=== PATIENT | female | born 1990 | race American Indian/Alaskan Native ===

== ENCOUNTER 2020-11-25 23:22 | Observation (INO) | payer OTHER, SELFPAY ==
[2020-11-26 00:17] LABS: Basophils # (Auto) 0.1 K/mm3 (0.0-0.1); Eosinophils # (Auto) 0.2 K/mm3 (0.0-0.4); Eosinophils % (Auto) 2.4 % (0.0-4.3); Hematocrit 36.7 % (30.3-42.9); Hemoglobin 11.7 gm/dl (10.1-14.3); Lymphocytes # (Auto) 1.8 K/mm3 (1.2-5.4); Lymphocytes % (Auto) 26.8 % (13.4-35.0); Mean Corpuscular HGB Conc 32 % (30-34); Mean Corpuscular Volume 71 fl (79-97); Monocytes # (Auto) 0.5 K/mm3 (0.0-0.8); Monocytes % (Auto) 7.2 % (0.0-7.3); Platelet Count 312 K/mm3 (140-440); Red Blood Count 5.15 M/mm3 (3.65-5.03); Red Cell Distribution Width 14.6 % (13.2-15.2)
[2020-11-26 00:27] LABS: INR 0.97 (0.87-1.13)
[2020-11-26 00:28] LABS: Partial Thromboplastin Time 31.3 Sec. (24.2-36.6); Thrombin Time 15.9 Sec. (15.1-19.6)
[2020-11-26 00:41] LABS: Creatine Kinase MB 4.7 ng/mL (0.0-4.0)
[2020-11-26 00:42] LABS: Alanine Aminotransferase 23 units/L (7-56); Albumin 4.1 g/dL (3.9-5); BUN/Creatinine Ratio 13; Blood Urea Nitrogen 12 mg/dL (7-17); Calcium 8.8 mg/dL (8.4-10.2); Hemolysis Index 5
[2020-11-26] MEDS ORDERED: ASPIRIN 325 MG TAB PO ONE (02:16)
[2020-11-26] MEDS ORDERED: ACETAMINOPHEN 325 MG TAB PO PRN ×2 (05:12→05:15)
[2020-11-26] MEDS ORDERED: ONDANSETRON 4 MG/2 ML INJ IV PRN (05:12)
[2020-11-26] MEDS ORDERED: traMADol 50 MG TAB PO PRN (05:15)
[2020-11-26] MEDS ORDERED: hydrALAZINE 20 MG/1 ML INJ IV PRN (05:15)
[2020-11-26] MEDS ORDERED: NITROGLYCERIN 0.4 MG TAB SUBL SL PRN (05:15)
[2020-11-26] MEDS ORDERED: D5W/0.9% NACL 1,000 ML IV SCH (06:00)
[2020-11-26 07:27] LABS: Basophils # (Auto) 0.1 K/mm3 (0.0-0.1); Basophils % (Auto) 1.6 % (0.0-1.8); Eosinophils # (Auto) 0.2 K/mm3 (0.0-0.4); Eosinophils % (Auto) 3.1 % (0.0-4.3); Hematocrit 37.6 % (30.3-42.9); Hemoglobin 11.9 gm/dl (10.1-14.3); Lymphocytes # (Auto) 1.8 K/mm3 (1.2-5.4); Lymphocytes % (Auto) 31.3 % (13.4-35.0); Mean Corpuscular HGB Conc 32 % (30-34); Mean Corpuscular Volume 71 fl (79-97); Monocytes # (Auto) 0.5 K/mm3 (0.0-0.8); Monocytes % (Auto) 8.2 % (0.0-7.3); Platelet Count 293 K/mm3 (140-440); Red Blood Count 5.27 M/mm3 (3.65-5.03); Red Cell Distribution Width 14.6 % (13.2-15.2)
[2020-11-26] MEDS: HEPARIN 5,000 UNIT/1 ML VIAL SUB-Q SCH ×3 (07:33→21:31)
[2020-11-26 07:56] LABS: BUN/Creatinine Ratio 11; Blood Urea Nitrogen 10 mg/dL (7-17); Hemolysis Index 4
[2020-11-26] MEDS: IPRATROPIUM/ALBUTEROL SULFATE 3 ML AMPUL.NEB IH SCH ×3 (10:21→21:10)
[2020-11-26] MEDS: ASPIRIN 325 MG TAB PO SCH (13:52)
[2020-11-26] MEDS: FAMOTIDINE 20 MG TAB PO SCH ×2 (13:52→21:31)
[2020-11-26] MEDS ORDERED: MORPHINE 2 MG/1 ML INJ IV ONE (18:32)
[2020-11-27] MEDS: IPRATROPIUM/ALBUTEROL SULFATE 3 ML AMPUL.NEB IH SCH ×3 (03:21→13:37)
[2020-11-27 05:28] LABS: Basophils % (Auto) 0.6 % (0.0-1.8); Eosinophils # (Auto) 0.2 K/mm3 (0.0-0.4); Eosinophils % (Auto) 3.4 % (0.0-4.3); Hematocrit 39.4 % (30.3-42.9); Hemoglobin 12.1 gm/dl (10.1-14.3); Lymphocytes # (Auto) 1.8 K/mm3 (1.2-5.4); Lymphocytes % (Auto) 28.3 % (13.4-35.0); Mean Corpuscular HGB Conc 31 % (30-34); Mean Corpuscular Volume 72 fl (79-97); Monocytes # (Auto) 0.4 K/mm3 (0.0-0.8); Monocytes % (Auto) 6.3 % (0.0-7.3); Platelet Count 290 K/mm3 (140-440); Red Blood Count 5.48 M/mm3 (3.65-5.03); Red Cell Distribution Width 14.4 % (13.2-15.2)
[2020-11-27 05:39] LABS: BUN/Creatinine Ratio 13; Blood Urea Nitrogen 10 mg/dL (7-17); Chol/HDL Ratio 3.89 %; HDL Cholesterol 29 mg/dL (40-59); Hemolysis Index 1; LDL Cholesterol,Direct 81 mg/dL (50-130)
[2020-11-27 08:55] VITALS: BP 146/100
[2020-11-27] MEDS: HEPARIN 5,000 UNIT/1 ML VIAL SUB-Q SCH ×2 (10:14→18:23)
[2020-11-27] MEDS: FAMOTIDINE 20 MG TAB PO SCH (11:25)
[2020-11-27] MEDS: ASPIRIN 325 MG TAB PO SCH (11:25)
== END 2020-11-27 19:02 | disposition home or self-care (01) ==
LOC: ED 23:22 → 4A 11-26 03:48
PROVIDERS: ADMIT Hospitalist; ATTEND Internal Medicine
DX: G51.0 Bell's palsy (principal); I24.9 Acute ischemic heart disease, unspecified; M62.81 Muscle weakness (generalized); R20.0 Anesthesia of skin; I10 Essential (primary) hypertension; R51.9 Headache, unspecified; J45.909 Unspecified asthma, uncomplicated; M19.90 Unspecified osteoarthritis, unspecified site; F44.4 Conversion disorder with motor symptom or deficit; F17.200 Nicotine dependence, unspecified, uncomplicated; R29.701 NIHSS score 1; Z79.82 Long term (current) use of aspirin
CPT/HCPCS: 36415; 70450; 70496; 70498; 70544; 70551; 70553; 80048; 80053; 80061; 82550; 82553; 82962; 84484; 84702; 85025; 85610; 85670; 85730; 87641; 92526; 92610; 93005; 93306; 94640; 94660; 96361; 96372; 96374; 96375; 97161; 97165; 99291; A9270; A9575; G0378; J1644; J2270; J2405; J7042; Q9967